=== PATIENT | female | born 1945 | race Caucasian/White ===

== ENCOUNTER 2018-04-02 16:42 | Emergency (ER) | payer MEDICARE ==
[2018-04-02] MEDS ORDERED: HYDROcodone 7.5MG/APAP 325MG 1 EA TAB PO ONE (17:00)
--- NOTE | 2018-04-02 17:48 | RAD ---
EXAM DESCRIPTION: KUB CLINICAL HISTORY: 72 years Female rt flank pain and hematuria COMPARISON: None. TECHNIQUE: Single view of the abdomen. FINDINGS: The upper abdomen was not entirely included on the film. The ascending colon and proximal transverse colon appear distended with stool which could be from constipation. No dilated loops of bowel to suggest obstruction. No significant calcific densities are identified. Mild curvature in the lumbar spine convex left. Degenerative changes in the spine. IMPRESSION: The proximal portion of the colon appears distended with stool which could be from constipation. Electronically signed by: Sameer Frederick MD 04/02/2018 5:47 PM PIE CHEF
--- NOTE | 2018-04-02 18:20 | CT ---
EXAM DESCRIPTION: Abdoment/Pelvis w/o Contrast CLINICAL HISTORY: 72 years Female hematuria, right flank pain COMPARISON: None. TECHNIQUE: Contiguous axial images obtained through the abdomen and pelvis without IV contrast. Reformatted images obtained. This exam was performed according to our department optimization program which includes automated exposure control, adjustment of the mA and/or kv according to patient size and/or use of iterative reconstruction technique. FINDINGS: The lung bases are clear. Fatty infiltration of the liver. The spleen and pancreas appear unremarkable. No adrenal masses. The kidneys appear unremarkable. No hydronephrosis or definite ureteral calculi. The gallbladder is distended with surrounding inflammatory change and wall thickening consistent with acute cholecystitis. Numerous calculi are noted including one in the cystic duct likely reflecting obstructing stone. Small amount of adjacent fluid is seen in the right upper quadrant. There is no evidence of intra or extrahepatic periductal dilatation. No aneurysmal dilatation of the aorta. No bowel obstruction. No free pelvic fluid. Diverticulosis without evidence of diverticulitis. IMPRESSION: Cholelithiasis and findings consistent with acute cholecystitis with a stone lodged in the region of the cystic duct or gallbladder neck No evidence of hydronephrosis or obstructive uropathy Diverticulosis Electronically signed by: Jennifer Frederick MD 04/02/2018 6:19 PM NEWS TECHNICAL DIRECTOR
[2018-04-02] MEDS ORDERED: CIPROFLOXACIN 500 MG TAB PO ONE (18:25)
[2018-04-02] MEDS ORDERED: POTASSIUM CHLORIDE ELIXIR 20 MEQ/15 ML UD PO ONE (19:20)
[2018-04-02] MEDS ORDERED: SODIUM CHLORIDE 0.9% 1000ML 1,000 ML IVS ONE (19:45)
[2018-04-02] MEDS ORDERED: PROMETHAZINE HCL INJ 25 MG in SODIUM CHLORIDE 0.9% 50ML 50 ML IVPB ONE (19:45)
[2018-04-02] MEDS ORDERED: SODIUM CHLORIDE 0.9% 50ML 50 ML ONE (19:49)
[2018-04-02] MEDS ORDERED: PROMETHAZINE HCL INJ 25 MG/ML VIAL ONE (19:49)
--- NOTE | 2018-04-02 19:59 | ED.PDOC ---
History of Present Illness - General Chief Complaint: Problem Stated Complaint: blood in urine Time Seen by Provider: 04/02/18 16:45 Source: patient Exam Limitations: no limitations - History of Present Illness Initial Comments: the patient is a 72-year-old female presenting to the emergency room secondary to right-sided abdominal and flank pain for the last 5-7 days. 2-3 days ago she thinks she started developing a low-grade fever. Yesterday she started having some nausea and vomiting. She denies having had any abdominal surgeries. She reports that the only medication that she takes is aspirin. She has had a history of diverticulitis in the past and has had a lumpectomy for benign mass on the left. the patient also reports having a small amount of hem aturia over the last couple of days. Mild frequency. Timing/Duration: unsure Severity: moderate Improving Factors: nothing Worsening Factors: eating Associated Symptoms: fever/chills, loss of appetite, malaise, nausea/vomiting Allergies/Adverse Reactions: Allergies Penicillins Allergy (Verified 04/02/18 17:01) Review of Systems - Review of Systems Constitutional: States: malaise EENTM: States: no symptoms reported Respiratory: States: no symptoms reported Cardiology: States: no symptoms reported Gastrointestinal/Abdominal: States: abdominal pain, nausea, vomiting Genitourinary: States: see HPI Musculoskeletal: States: back pain Skin: States: no symptoms reported Neurological: States: no symptoms reported Endocrine: States: no symptoms reported All other Systems: No Change from Baseline Past Medical History (General) - Patient Medical History Hx Seizures: No Hx Cardiac Disorders: No Hx Diabetes: No Surgical History: other Family Medical History - Family History Mother Family History: No Known Physical Exam - Physical Exam General Appearance: Alert, Anxious, No apparent distress Eye Exam: bilateral normal Ears, Nose, Throat: hearing grossly normal, normal ENT inspection, normal pharynx Neck: full range of motion, supple Respiratory: lungs clear, normal breath sounds, no respiratory distress, no accessory muscle use Cardiovascular/Chest: normal peripheral pulses, regular rate, rhythm - orderline tachycardia, no edema Peripheral Pulses: radial,right: 2+, radial,left: 2+, dorsalis pedis,right: 2+, dorsalis pedis,left: 2+ Gastrointestinal/Abdominal: soft, other - moderate right upper quadrant discomfort palpation. no definite palpable mass. Rectal Exam: deferred Back Exam: no CVA tenderness, no vertebral tenderness Extremity: non-tender, normal inspection, no pedal edema, normal capillary refill Neurologic: cloth hauler II-XII nml as tested, alert, normal mood/affect, oriented x 3 Skin Exam: normal color Comments: Vital Signs - 8 hr 04/02/18 04/02/18 16:48 19:00 Temperature 100.0 F H Pulse Rate [ 115 H 69 left brachial] Respiratory 20 18 Rate Blood Pressure 203/113 162/93 [left brachial] O2 Sat by Pulse 98 98 Oximetry Progress - Progress Progress: 04/02/18 20:02 the patient is a 72-year-old female presenting to emergency room secondary to right sided flank and abdominal pain. Initially a kidney stone was suspected given the hematuria however CT scan demonstrates no significant kidney stone but there does appear to be an acute cholecystitis with a stone obstructing the cystic duct. Liver function tests as well as amylase and lipase are within normal limits however the patient's white blood cell count is elevated and she is and has been febrile. Given the patient's known penicillin allergy and the fact that she is unable to say if she is allergic to cephalosporins or not, the patient is being placed on ciprofloxacin and metronidazole. She is being made nothing by mouth. The patient is being transferred to [facility] for general surgery evaluation. Blood culture has been performed. The patient has received a liter of IV fluids and a dose of Phenergan for the nausea and vomiting. Evaluation by urology as an outpatient in the future for the hematuria may be warranted as well. transferred for higher level of care. - Results/Orders Results/Orders: 04/02/18 17:33 UA [URINALYSIS] Stat 04/02/18 18:51 BLOOD CULTURE Stat 04/02/18 19:45 Promethazine HCl Inj [Phenergan Inj] 25 mg Sodium Chloride 0.9% 50Ml [NS 50ml] 50 ml IVPB ONCE Sodium Chloride 0.9% 1000ML [Ns 1000 ml] 1,000 ml IVS ONCE Laboratory Results - last 24 hr 04/02/18 04/02/18 04/02/18 18:51 18:51 18:51 WBC RBC Hgb Hct MCV MCH MCHC RDW Plt Count MPV Absolute Neuts (auto) Absolute Lymphs (auto) Absolute Monos (auto) Absolute Eos (auto) Absolute Basos (auto) Neutrophils % Lymphocytes % Monocytes % Eosinophils % Basophils % PT 10.8 INR 1.08 PTT (SP) 32.2 H Sodium 135 Potassium 3.2 L Chloride 100 L Carbon Dioxide 21 Anion Gap 17.2 BUN 6 L Creatinine 0.63 BUN/Creatinine Ratio 9.5 L Random Glucose 158 H Serum Osmolality 272.9 L Lactic Acid 1.5 Calcium 9.4 Total Bilirubin 1.7 H AST 26 ALT 17 Alkaline Phosphatase 85 Serum Total Protein 8.6 H Albumin 4.6 Globulin 4.0 H Albumin/Globulin Ratio 1.2 Amylase 20 L Lipase 26 04/02/18 18:51 WBC 15.0 H RBC 5.12 Hgb 14.6 Hct 42.7 MCV 83.3 MCH 28.6 MCHC 34.3 RDW 13.0 Plt Count 335 MPV 8.6 Absolute Neuts (auto) 11.00 H Absolute Lymphs (auto) 2.50 Absolute Monos (auto) 1.40 H Absolute Eos (auto) 0.00 Absolute Basos (auto) 0.00 Neutrophils % 73.8 Lymphocytes % 16.6 L Monocytes % 9.3 H Eosinophils % 0.0 L Basophils % 0.3 PT INR PTT (SP) Sodium Potassium Chloride Carbon Dioxide Anion Gap BUN Creatinine BUN/Creatinine Ratio Random Glucose Serum Osmolality Lactic Acid Calcium Total Bilirubin AST ALT Alkaline Phosphatase Serum Total Protein Albumin Globulin Albumin/Globulin Ratio Amylase Lipase CT scan of abdomen and pelvis is consistent with acute cholecystitis with a stone obstructing the cystic duct. no evidence of any obstructingureteral stone. Departure - Departure Clinical Impression: Acute calculous cholecystitis Disposition: Transfer to Hospital Transfer to Outside Facility - Transfer Information Accepting Provider:: dr eduardo Accepting Facility: [facility] Reason for Transfer: required specialist not available
[2018-04-02 20:11] VITALS: BP 201/97
[2018-04-02 20:14] VITALS: TEMP 99.1; O2SAT 97
[2018-04-02] MEDS ORDERED: cloNIDine HCL 0.1 MG TAB PO ONE (20:15)
[2018-04-02] MEDS ORDERED: cloNIDine HCL 0.1 MG TAB ONE (20:15)
== END 2018-04-02 20:36 | disposition short-term general hospital (02) ==
LOC: ER 16:42
DX: K80.01 Calculus of gallbladder with acute cholecystitis with obstruction (principal); R31.9 Hematuria, unspecified; R35.0 Frequency of micturition; Z88.0 Allergy status to penicillin
CPT/HCPCS: 36415; 74018; 74176; 80053; 82150; 83605; 83690; 85025; 85610; 85730; 87040; A4216; J2550; J7030